=== PATIENT | male | born 1965 | race Caucasian/White ===

== ENCOUNTER 2018-02-28 10:47 | Outpatient (RCR) | payer BC, OTHER ==
[~2018-02-28 10:47] MED LIST: ESOM40CA42 PO
[2018-02-28] MEDS ORDERED: METF-450 PO (10:53)
[2018-02-28] MEDS ORDERED: ATOR10TA24 PO (10:56)
[2018-02-28] MEDS ORDERED: TES75PMPPT TD (10:56)
[2018-02-28] MEDS ORDERED: LEVO50TA86 PO (10:56)
[2018-02-28 10:57] VITALS: BP 123/80
--- NOTE | 2018-02-28 14:38 | ONCOLOGY CONSULTATION ---
EVENT DATE: February 28, 2018 REFERRING PHYSICIAN Chuyita Quijano DO REASON FOR CONSULTATION Evaluation and management of erythrocytosis. HEMATOLOGY HISTORY Patient is a 52-year-old male who has hypogonadism, currently on AndroGel with testosterone supplement. Patient had his blood work done recently in November 2017 which showed hemoglobin of 18.2 and hematocrit 53.9. White blood cell count was normal at 8.3, and the platelet count was mildly low at 146,000. Patient denies any constitutional symptoms, and he is doing really very well currently. PAST MEDICAL HISTORY 1. Hypothyroidism. 2. Prediabetic. 3. Dyslipidemia. 4. Hypogonadism. PAST SURGICAL HISTORY Tonsillectomy as a child. FAMILY HISTORY Negative for cancer or blood diseases. SOCIAL HISTORY The patient is with two children. 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 He has never smoked. He denies any abuse of alcohol or illicit drugs. CURRENT MEDICATIONS 1. Testosterone. 2. AndroGel 75 g gel, 10.125 mg transderm. 3. Lipitor 10 mg daily. 4. Levothyroxine 50 mcg daily. 5. Metformin 1000 mg twice daily. ALLERGIES No known drug allergies. REVIEW OF SYSTEMS CONSTITUTIONAL: No appetite or weight change. No fever, chills, or sweating. No recent infection. HEENT: Ears: No tinnitus or hearing problem. Nose: No nasal discharge or epistaxis. Throat: No sore throat or mouth ulcers. Eyes: No diplopia or visual changes. RESPIRATORY: No shortness of breath. No cough, expectoration, or hemoptysis. CARDIOVASCULAR: No chest pain, orthopnea, or paroxysmal nocturnal dyspnea (PND). No edema. No palpitations. GASTROINTESTINAL: No nausea or vomiting. No diarrhea or constipation. No change in bowel movements. No heartburn or swallowing difficulties. No abdominal pain. No jaundice. No hematemesis, melena, or rectal bleeding. GENITOURINARY: No hematuria or dysuria. MUSCULOSKELETAL: No pain in the muscles, joints, or bones. NEUROLOGICAL: No tingling or numbness in the hands or feet. No headaches or convulsions. HEMATOLOGIC/LYMPHATIC: No bleeding or easy bruising. No weakness or fatigue. No enlarged lymph nodes. SKIN: No skin rash or lumps. PSYCHIATRIC: No anxiety or depression. PHYSICAL EXAMINATION GENERAL: Looks stable. Well developed, well nourished, and in no acute distress. VITAL SIGNS: Blood pressure 123/80, pulse 50 per minute, respirations 16 per minute, temperature 97.9, pulse oximetry 92% on room air. HEENT: Head: Atraumatic. No sinus tenderness to palpation. Eyes: No icterus or conjunctivitis. Mouth and throat: No oral thrush or mucositis. NECK: Supple. No cervical or supraclavicular lymphadenopathy. LUNGS: Clear to auscultation and percussion bilaterally. HEART: Regular rate and rhythm. No gallops, murmurs, clicks, or rubs. ABDOMEN: Soft and lax. No tenderness. No hepatosplenomegaly. No masses. EXTREMITIES: No cyanosis, clubbing, or edema. LYMPHATICS: No peripheral lymphadenopathy. NEUROLOGICAL: Conscious, alert, and oriented times three. No focal motor or sensory deficits. PSYCHIATRIC: Mood and affect appear normal. SKIN: No skin rash, bruise, or purpuric eruption. ASSESSMENT 1. Erythrocytosis, most probably due to his testosterone supplement which is a very common cause of second-degree erythrocytosis, but we cannot rule out polycythemia vera. For this reason, I am planning to check JAK2 mutation analysis which is positive in 95% of cases of polycythemia vera, but negative in second-degree erythrocytosis. I am planning also to check his erythropoietin level which will be low with polycythemia vera and normal or high in second- degree erythrocytosis. If the patient is having erythrocytosis secondary to testosterone therapy, then our target for phlebotomy will be hematocrit above 55%. I am planning to check his CBC, erythropoietin level, and JAK2 mutation analysis today. I will see him in two months with CBC, and I will check his CBC every month. We will proceed with phlebotomy whenever his hematocrit is above 55%. 2. Hypogonadism, on testosterone supplement. 3. Hypothyroidism, on thyroid supplement. 4. Prediabetic, on metformin. 5. Dyslipidemia, on Lipitor. PLAN 1. CBC. 2. Erythropoietin level. 3. JAK2 mutation analysis. 4. Phlebotomize 500 mL of blood if hematocrit above or equal to 55%. 5. Patient will return in two months with CBC. 6. Check CBC monthly. 7. Patient to contact us for any new concerns or complaints. [facility]
== END 2018-05-28 ==
LOC: ONC 10:47
PROVIDERS: ATTEND Internal Medicine Hematology
DX: D75.1 Secondary polycythemia (principal); E29.1 Testicular hypofunction; E03.9 Hypothyroidism, unspecified; R73.03 Prediabetes
CPT/HCPCS: 99202; 99203